=== PATIENT | female | born 1960 | race Caucasian/White ===

== ENCOUNTER 2018-03-14 11:30 | Outpatient (RCR) | payer MEDICARE | END 2018-03-14 12:00 | disposition home or self-care (01) | LOC: PT 11:30 | DX: M22.41 Chondromalacia patellae, right knee (principal) | CPT/HCPCS: G8978-GP; G8979-GP ==

== ENCOUNTER → 2018-12-25 | Outpatient (CLI) | payer MEDICARE | LOC: RAD 12:45 | DX: M51.34 Other intervertebral disc degeneration, thoracic region (principal); M54.40 Lumbago with sciatica, unspecified side; Z98.1 Arthrodesis status ==

== ENCOUNTER → 2020-10-06 | Outpatient (CLI) | payer SELFPAY ==
[~2020-10-06] MED LIST: ADVIL 200MG TA200 MG PO; TYLENOL EXTRA500 M2 PO
== END ==
LOC: RAD 08:51
PROVIDERS: Nurse Practitioner Family
DX: Z01.812 Encounter for preprocedural laboratory examination (principal); N63.21 Unspecified lump in the left breast, upper outer quadrant; R93.89 Abnormal findings on diagnostic imaging of other specified body structures
CPT/HCPCS: Q9967

== ENCOUNTER 2021-01-03 12:12 | Emergency (ER) | payer SELFPAY ==
[2021-01-03] MEDS ORDERED: ADVIL 200MG TA200 MG PO (12:28)
[2021-01-03] MEDS ORDERED: TYLENOL EXTRA500 M2 PO (12:29)
[2021-01-03 14:38] LABS: BASO # 0.07 (0.02-0.10); EOS # 0.22 (0.04-0.40); EOS % 3.1 % (1.0-5.0); HEMATOCRIT 42.2 % (37.0-47.0); HEMOGLOBIN 14.3 g/dL (12.5-16.0); LYMPH# 1.94 (1.50-4.00); MEAN CELL VOLUME 94 fl (78-100); MEAN CORPUSCULAR HEMOGLOBIN 32 pg (27-31); MEAN CORPUSCULAR HGB CONC 34 g/dL (33-37); MEAN PLATELET VOLUME 10.6 fl (7.4-10.4); MONO # 0.44 (0.20-0.80); PLATELET COUNT 199 K/mm3 (130-400); RED BLOOD COUNT 4.51 M/mm3 (4.10-5.30); RED CELL DISTRIBUTION WIDTH 12.9 % (11.5-14.5); WHITE BLOOD COUNT 7.1 K/mm3 (4.8-10.8)
[2021-01-03 14:48] LABS: ALBUMIN 4.2 g/dL (3.5-5.0); POTASSIUM 4.4 mmol/L (3.5-5.1)
[2021-01-03 14:49] LABS: CALCIUM 9.8 mg/dL (8.3-10.5)
[2021-01-03 14:50] LABS: TOTAL PROTEIN 6.9 g/dL (6.4-8.3)
[2021-01-03 14:52] LABS: TOTAL BILIRUBIN 0.2 mg/dL (0.2-1.2)
[2021-01-03 16:23] VITALS: BP 112/78
== END 2021-01-03 16:26 | disposition home or self-care (01) ==
LOC: ED 12:12
PROVIDERS: Nurse Practitioner
DX: T85.615A Breakdown (mechanical) of other nervous system device, implant or graft, initial encounter (principal); M54.5 Low back pain; F17.200 Nicotine dependence, unspecified, uncomplicated; Z88.5 Allergy status to narcotic agent